=== PATIENT | male | born 1980 | race Caucasian/White ===

== ENCOUNTER → 2020-06-07 10:05 | Outpatient (BNVA) | payer OTHER, SELFPAY | PROVIDERS: Visit Provider Nurse Practitioner Family | DX: M25.572 Pain in left ankle and joints of left foot (principal) | CPT/HCPCS: 73610 ==

== ENCOUNTER 2020-06-07 15:54 | Outpatient (CLI) | payer OTHER, SELFPAY ==
--- NOTE | 2020-06-07 16:14 | PC.NURSE ---
Patient identification verified via name and date of . Wearing full PPE of goggles, N95, gown, and gloves patient was swabbed for Covid 19 specimen taken and signed into lab at 1605. Patient tolerated procedure well.
[2020-06-08 20:12] LABS: Coronavirus Lab Test PTC Negative
== END 2020-06-07 15:55 | disposition home or self-care (01) ==
PROVIDERS: Visit Provider Podiatrist Foot & Ankle Surgery
DX: Z01.812 Encounter for preprocedural laboratory examination (principal)
CPT/HCPCS: 87635

== ENCOUNTER 2020-06-10 05:00 | Day surgery (SDC) | payer OTHER, SELFPAY ==
[2020-06-09 06:50] VITALS: BMI 37.5
[2020-06-09 14:05] VITALS: BMI 33.5
[2020-06-10] VITALS (10 sets, daily range): BP systolic 116–128; BP diastolic 79–90; PULSE 72–105; RESP 15–30; TEMP 36.2–36.8; O2SAT 94–99
--- NOTE | 2020-06-10 | SCC_ITS ---
Procedure Done: Open reduction with internal fixation left medial malleolus fracture 17 seconds of fluoroscopic guidance, for a cumulative dose of 0.5 mGy, was provided to Dr. Tristan by the radiology department. C-arm images of the LEFT ankle were saved for the patient's permanent record. SOLO
[2020-06-10] MEDS: sodium chloride 0.9% 1,000 ML 30 ML IV (05:50)
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
--- NOTE | 2020-06-10 06:29 | P.HPUD_ITS ---
Surgery/Procedure H&P Update DATE OF PROCEDURE: June 10, 2020 DATE H&P PERFORMED: 06/07/20 H&P UPDATE INFORMATION: I have reviewed H&P completed within last 30 days, I have examined patient prior to procedure, No changes to prior documentation and H&P is in [facility] [place] EMR on date indicated PREOP DIAGNOSIS: Left medial malleolus fracture PLANNED PROCEDURE: Operation Date: 06/10/20 07:00 Proposed Procedures p ORIF medial maleollus fracture 72199 S82.52XB(Left) - Boby Tristan DPM
[2020-06-10] MEDS: fentaNYL 50 mcg/mL INJ 2mL 100 MCG IVP (06:30)
[2020-06-10] MEDS: midazolam 1 mg/mL INJ 2 mL 2 MG IVP (06:30)
--- NOTE | 2020-06-10 06:51 | ANES.PROC ---
Anesthesia Procedures Procedure/Date: 06/10/20 Nerve Block ^: Nerve Block 1: Main Anesthesia: general anesthesia Time Out Performed: Yes Consent: requested by attending/covering physician, from patient, risks and benefits reviewed and patient agrees to proceed Nerve block location: popliteal (L) Anesthesia monitors applied: pulse oximetry and oxygen Nerve block position: semi sitting Anesthetic Used: ropivicaine 0.5% and with decadron (4 mg) Amount of anesthesia used (mL): 30 Ultrasound used to: recognize landmarks Nerve Stimulator Used?: No Interscalene/Femoral BLK: 4 stimuplex 21 g needle used for position and inplane approach, visualize local anesthetic spread and no vascular puncture identified Injection: neg aspiration of heme Patient Tolerated Procedure: well Complications: none
--- NOTE | 2020-06-10 07:59 | XR_ITS ---
WS: [id number] ANKLE LEFT TECHNIQUE: 3 views of the left ankle CLINICAL INFORMATION: post op COMPARISON: None. FINDINGS: Moderate soft tissue edema. Screw fixation across the medial malleolus. Normal ankle mortise. Plantar calcaneal spurring. XR/XR ankle LT min 3V* [id number] IMPRESSION: Screw fixation across the medial malleolus. Normal for postoperative purposes. Moderate soft tissue edema.
--- NOTE | 2020-06-10 08:03 | SUR.PHASEI ---
0802 PATIENT TO PACU FROM OR. NO DISTRESS. RR EVEN AND UNLABORED. DRESSING IN PLACE TO LEFT ANKLE WITH BOOT IN PLACE.
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
--- NOTE | 2020-06-10 08:29 | SUR.PHASEI ---
0895 PATIENT TO OPS, DENIES PAIN. DRESSING IN PLACE TO LEFT ANKLE WITH BOOT.
== END 2020-06-10 09:30 | disposition home or self-care (01) ==
PROVIDERS: Visit Provider Podiatrist Foot & Ankle Surgery
PROC: (CPT 27766; principal; 2020-06-10 07:00)
DX: S82.52XA Displaced fracture of medial malleolus of left tibia, initial encounter for closed fracture (principal); W23.0XXA Caught, crushed, jammed, or pinched between moving objects, initial encounter
CPT/HCPCS: 27766; 12345; 73610; 76000; 96374; 96375; C1713; J0690; J1100; J1885; J2250; J2405; J2704; J2710; J2795; J3010; J3490; J7030

== ENCOUNTER → 2020-06-23 14:49 | Outpatient (BNVA) | payer OTHER, SELFPAY | PROVIDERS: Visit Provider Podiatrist Foot & Ankle Surgery | DX: S82.52XA Displaced fracture of medial malleolus of left tibia, initial encounter for closed fracture (principal); X58.XXXA Exposure to other specified factors, initial encounter | CPT/HCPCS: 73610 ==

== ENCOUNTER → 2020-07-11 08:27 | Outpatient (BNVA) | payer OTHER, SELFPAY | PROVIDERS: Visit Provider Podiatrist Foot & Ankle Surgery | DX: Z47.89 Encounter for other orthopedic aftercare (principal); S82.52XD Displaced fracture of medial malleolus of left tibia, subsequent encounter for closed fracture with routine healing; X58.XXXD Exposure to other specified factors, subsequent encounter | CPT/HCPCS: 73610 ==

== ENCOUNTER → 2020-08-03 09:03 | Outpatient (BNVA) | payer OTHER, SELFPAY | PROVIDERS: Visit Provider Podiatrist Foot & Ankle Surgery | DX: S82.52XD Displaced fracture of medial malleolus of left tibia, subsequent encounter for closed fracture with routine healing (principal); Z48.89 Encounter for other specified surgical aftercare; X58.XXXD Exposure to other specified factors, subsequent encounter | CPT/HCPCS: 73610 ==

== ENCOUNTER 2020-08-03 11:37 | Outpatient (CLI) | payer OTHER, SELFPAY | END 2020-08-03 11:38 | disposition home or self-care (01) | LOC: SPT 11:37 | PROVIDERS: Visit Provider Podiatrist Foot & Ankle Surgery | DX: Z46.89 Encounter for fitting and adjustment of other specified devices (principal); S82.892D Other fracture of left lower leg, subsequent encounter for closed fracture with routine healing; X58.XXXD Exposure to other specified factors, subsequent encounter | CPT/HCPCS: 97760; L1902 ==

== ENCOUNTER → 2020-08-31 11:18 | Outpatient (BNVA) | payer OTHER, SELFPAY | PROVIDERS: Visit Provider Podiatrist Foot & Ankle Surgery | DX: S82.52XA Displaced fracture of medial malleolus of left tibia, initial encounter for closed fracture (principal); X58.XXXA Exposure to other specified factors, initial encounter | CPT/HCPCS: 73610 ==

== ENCOUNTER → 2021-07-10 10:13 | Outpatient (BNVA) | payer OTHER, SELFPAY | PROVIDERS: Visit Provider Nurse Practitioner Family | DX: Z20.822 Contact with and (suspected) exposure to COVID-19 (principal) | CPT/HCPCS: 87426; 87635 ==

== ENCOUNTER 2021-07-12 11:20 | Outpatient (CLI) | payer OTHER, SELFPAY ==
[2021-07-12 11:56] VITALS: BP 118/78; PULSE 40; RESP 16; TEMP 36.3; O2SAT 94; BMI 33.5
[2021-07-12 12:31] VITALS: BP 110/68; PULSE 40; RESP 18; O2SAT 94
[2021-07-12 12:41] VITALS: BP 110/68; PULSE 40; RESP 16; O2SAT 95
[2021-07-12 13:02] VITALS: BP 110/74; PULSE 42; RESP 16; TEMP 36.6; O2SAT 94
--- NOTE | 2021-07-12 13:04 | PC.NURSE ---
Took vitals on patient while in infusion clinic. Pulse rate low 39, 40, 42. Patient states that his pulse was low yesterday also while receiving fluids at a walk in clinic. He denies any weakness or dizziness. BP WNL.
--- NOTE | 2021-07-21 14:25 | DCPLANNER ---
actuary manager had message that patient received the monoclonal antibody infusion. actuary manager called to check on patient after getting the infusion. Patient stated that before the infusion that he felt like he was dehydrated, he was nauseous, he had diarrhea, he had a severe cough, he was congested, he had a low grade fever. Patient stated that he just felt tired all of the time. Patient stated that after the infusion that he is feeling much better, he stated that he still has a cough, he is still tired. Patient stated that he has not ran a fever. Patient stated that over all he is feeling much better.
== END 2021-07-12 11:21 | disposition home or self-care (01) ==
LOC: OPS 11:30
PROVIDERS: Visit Provider Nurse Practitioner Family
DX: U07.1 COVID-19 (principal)
CPT/HCPCS: 96365

== ENCOUNTER → 2022-01-05 08:42 | Outpatient (BNVA) | payer OTHER, SELFPAY | PROVIDERS: Visit Provider Nurse Practitioner Family | DX: S97.82XA Crushing injury of left foot, initial encounter (principal); X58.XXXA Exposure to other specified factors, initial encounter | CPT/HCPCS: 73630 ==

== ENCOUNTER → 2022-02-16 14:16 | Outpatient (BNVA) | payer OTHER, SELFPAY | PROVIDERS: PCP Nurse Practitioner Family; Visit Provider Podiatrist Foot & Ankle Surgery | DX: S92.422D Displaced fracture of distal phalanx of left great toe, subsequent encounter for fracture with routine healing (principal); X58.XXXD Exposure to other specified factors, subsequent encounter | CPT/HCPCS: 73630 ==

== ENCOUNTER → 2023-09-25 15:59 | Outpatient (BNVA) | payer OTHER, SELFPAY | PROVIDERS: PCP Nurse Practitioner Family; Visit Provider Nurse Practitioner Family | DX: L03.011 Cellulitis of right finger (principal); Z13.6 Encounter for screening for cardiovascular disorders; Z79.899 Other long term (current) drug therapy; E55.9 Vitamin D deficiency, unspecified; I49.9 Cardiac arrhythmia, unspecified | CPT/HCPCS: 73140; 80053; 80061; 81003; 82306; 83036; 84443; 85025 ==

== ENCOUNTER → 2023-10-24 10:17 | Outpatient (BNVA) | payer OTHER, SELFPAY | PROVIDERS: PCP Nurse Practitioner Family; Visit Provider Nurse Practitioner Family | DX: R31.9 Hematuria, unspecified (principal); R53.83 Other fatigue | CPT/HCPCS: 81003; 87086 ==

== ENCOUNTER → 2023-10-31 08:24 | Outpatient (BNVA) | payer OTHER, SELFPAY | PROVIDERS: PCP Nurse Practitioner Family; Visit Provider Nurse Practitioner Family | DX: R31.9 Hematuria, unspecified (principal); R53.83 Other fatigue | CPT/HCPCS: 81003; 84402; 84403; 87086; 88112 ==

== ENCOUNTER → 2024-08-04 15:05 | Outpatient (BNVA) | payer OTHER, SELFPAY | PROVIDERS: PCP Nurse Practitioner Family; Visit Provider Nurse Practitioner Family | DX: S62.521A Displaced fracture of distal phalanx of right thumb, initial encounter for closed fracture (principal); W31.2XXA Contact with powered woodworking and forming machines, initial encounter; Z89.021 Acquired absence of right finger(s) | CPT/HCPCS: 73130 ==